=== PATIENT | male | born 1980 | race Asian ===

== ENCOUNTER 2017-12-22 18:38 | Emergency (ER) | payer SELFPAY ==
[2017-12-22] MEDS: SOD CHLORIDE 0.9% 1,000 ML IV ×2 (20:20→21:31)
[2017-12-22] MEDS: ONDANSETRON 4 MG INJ IV (20:21)
[2017-12-22] MEDS: MECLIZINE 12.5 MG TAB PO (21:31)
== END 2017-12-23 | disposition home or self-care (01) ==
LOC: FTE 12-23
DX: R11.2 Nausea with vomiting, unspecified (principal); R42 Dizziness and giddiness
CPT/HCPCS: 93005; 96361; 96374; 99284-25